=== PATIENT | male | born 1955 | race Caucasian/White ===

== ENCOUNTER 2017-09-24 08:47 | Emergency (ER) | payer OTHER ==
[2017-09-24 08:58] VITALS: BP 141/87
[2017-09-24] MEDS ORDERED: Bacitracin/Neomycin/Polymyxin B Oint 0.9 GM U/D Packet TOP ONE (09:27)
[2017-09-24] MEDS ORDERED: Diphtheria,Pertussis(Acell),Tetanus Vaccine 0.5 ML SDV IM ONE (09:32)
--- NOTE | 2017-09-24 09:50 | EDM.PDOC ---
ED HPI GENERAL MEDICAL PROBLEM - General Chief Complaint: Laceration Stated Complaint: laceration Time Seen by Provider: 09/24/17 09:23 Source of Information: Reports: Patient History Limitations: Reports: No Limitations - History of Present Illness INITIAL COMMENTS - FREE TEXT/NARRATIVE: [employer] employee. Lacerated right middle finger on grinder lap wheel. No loss of function. Bleeding controlled. No numbness. No other complaints. Tetanus needs to be updated. Treatments DOOR LINER: Reports: Other (see below) Other Treatments DOOR LINER: bandage to right finger - Related Data Allergies Allergy/AdvReac Type Severity Reaction Status Date / Time No Known Allergies Allergy Verified 09/24/17 09:00 Home Meds: Home Meds Aspirin 81 mg PO QAM 09/26/15 [History] Gluc 2KCl/Chondr/Hali Hy/Hy Ac [Glucosamine & Chondroitin Cap] 2 cap PO QAM 01/03 [History] Losartan/Hydrochlorothiazide [Losartan-HCTZ 100-25 MG] 1 each PO QAM 09/26/15 [ History] Sertraline [Zoloft] 75 mg PO QAM 09/26/15 [History] Simvastatin [Zocor] 40 mg PO DAILY 09/26/15 [History] Past Medical History Other HEENT History: Upper and lower plate in his mouth Cardiovascular History: Reports: High Cholesterol, Hypertension Respiratory History: Reports: None Gastrointestinal History: Reports: None Genitourinary History: Reports: None Musculoskeletal History: Reports: Arthritis Neurological History: Reports: None Psychiatric History: Reports: None Endocrine/Metabolic History: Reports: Obesity/BMI 30+ Hematologic History: Reports: None Immunologic History: Reports: None Oncologic (Cancer) History: Reports: None Dermatologic History: Reports: None - Past Surgical History Musculoskeletal Surgical History: Reports: Hip Replacement, Joint Replacement Social & Family History - Tobacco Use Smoking Status *Q: Former Smoker Years of Tobacco use: 2 Packs/Tins Daily: 0.5 Used Tobacco, but Quit: Yes Month/Year Tobacco Last Used: March 21, 2017 - Caffeine Use Caffeine Use: Reports: Coffee - Recreational Drug Use Recreational Drug Use: No ED ROS GENERAL - Review of Systems Review Of Systems: ROS reveals no pertinent complaints other than HPI. ED EXAM, SKIN/RASH Exam: See Below Exam Limited By: No Limitations General Appearance: Alert, WD/WN, No Apparent Distress Head: Atraumatic, Normocephalic Respiratory/Chest: No Respiratory Distress Extremities: Normal Range of Motion, Normal Capillary Refill Neurological: Alert, Oriented, Normal Cognition, Normal Gait, No Motor/Sensory Deficits Psychiatric: Normal Affect, Normal Mood Skin: Warm, Dry, Other (2cm laceration distal portion of right middle finger over DIP ) ED SKIN PROCEDURES - Laceration/Wound Repair Right Middle Distal Dorsal Finger Lac/Wound length In cm: 2 Appearance: Subcutaneous, Linear, Mildly Contaminated Distal NVT: Neuro & Vascular Intact, No Tendon Injury Anesthetic Type: Local Local Anesthesia - Lidocaine (Xylocaine): 1% Plain Local Anesthetic Volume: 3cc Skin Prep: Providone-Iodine (Betadine), Saline Exploration/Debridement/Repair: Wound Explored, In a Bloodless Field, Explored to Base, No Foreign Material Found Closed with: Sutures Suture Size: 4-0 # of Sutures: 4 Suture Type: Nylon, Interrupted Drain Placement: No Sterile Dressing Applied: Nurse Tetanus Status Addressed: Yes Complications: No Course - Vital Signs Last Recorded V/S: Last Vital Signs Temp 36.7 C 09/24/17 08:56 Pulse 73 09/24/17 08:56 Resp 20 09/24/17 08:56 BP 141/87 H 09/24/17 08:56 Pulse Ox 98 09/24/17 08:56 - Orders/Labs/Meds Orders: Active Orders 24 hr Category Date Time Status Vaccines to be Administered [RC] PER UNIT ROUTINE Care 09/24/17 09:33 Active Meds: Medications Discontinued Medications Generic Name Dose Route Start Last Admin Trade Name Freq PRN Reason Stop Dose Admin Diphtheria/Tetanus/Acell Pertussis 0.5 ml 09/24/17 09:32 09/24/17 09:38 Adacel IM 09/24/17 09:33 0.5 ml .ONCE ONE Administration Lidocaine HCl 5 ml 09/24/17 09:26 09/24/17 09:32 Xylocaine-Mpf 1% INJECT 09/24/17 09:27 5 ml ONETIME ONE Administration Neomycin/Polymyxin/Bacitracin 1 each 09/24/17 09:27 09/24/17 09:32 Triple Antibiotic Oint TOP 09/24/17 09:28 1 each ONETIME ONE Administration - Re-Assessments/Exams Free Text/Narrative Re-Assessment/Exam: 09/24/17 09:54 Laceration repaired. BP noted to be a bit elevated. Has history of hypertension. Annoyed at injury and having to come to ER for sutures. This likely has played into elevation observed. To continue to monitor BP for trends and followup as needed with primary provider. Departure - Departure Time of Disposition: 09:50 Disposition: Home, Self-Care 01 Condition: Good Clinical Impression: Laceration of right middle finger Qualifiers: Encounter type: initial encounter Damage to nail status: without damage Foreign body presence: without foreign body Qualified Code(s): S61.212A - Laceration without foreign body of right middle finger without damage to nail, initial encounter - Discharge Information Instructions: Laceration Care, Adult, [id number], Stitches, Cammie, or Adhesive Wound Closure, [id number] Referrals: Rajani Rodriguez NP [Primary Care Provider] - Forms: ED Department Discharge Additional Instructions: Wound care as instructed. Make appointment to get sutures removed next Wednesday. Watch for infection and follow up as needed if you have any problems. - My Orders Last 24 Hours: My Active Orders 09/24/17 09:33 Vaccines to be Administered [RC] PER UNIT ROUTINE - Assessment/Plan Last 24 Hours: My Active Orders 09/24/17 09:33 Vaccines to be Administered [RC] PER UNIT ROUTINE
== END 2017-09-24 10:05 | disposition home or self-care (01) ==
LOC: LL.ED 08:47
DX: S61.212A Laceration without foreign body of right middle finger without damage to nail, initial encounter (principal); E78.5 Hyperlipidemia, unspecified; I10 Essential (primary) hypertension; E66.9 Obesity, unspecified; Z23 Encounter for immunization; W31.9XXA Contact with unspecified machinery, initial encounter; Y99.0 Civilian activity done for income or pay; Z87.891 Personal history of nicotine dependence; Z68.38 Body mass index [BMI] 38.0-38.9, adult
CPT/HCPCS: 12001; 90471; 90715; 99283